=== PATIENT | male | born 1945 | race Caucasian/White ===

== ENCOUNTER 2018-04-10 09:20 | Day surgery (SDC) | payer MEDICARE ==
[2018-04-09 11:29] VITALS: BMI 23.6
[2018-04-10 10:13] LABS: #Eosinphils 0.2 thou/uL (0.0-0.7); #Lymphocytes 0.8 thou/uL (1.20-3.40); #Monocytes 0.3 thou/uL (0.11-0.59); #Neutrophils 1.7 thou/uL (1.40-6.50); %Basophils 0.9 % (0.0-1.0); %Lymphocytes 25.5 % (21.0-51.0); %Neutrophils 56.6 % (42.0-75.0); Hemoglobin 14.9 g/dL (14.0-18.0); Mean Corpuscular HGB CONC 35.2 g/dL (32.0-36.0); Mean Corpuscular Volume 93.8 fL (78.0-98.0); Platelet Count 122 thou/uL (130-400); RBC Distribution Width 11.6 % (11.5-14.5); Red Blood Cell (RBC) Count 4.52 mill/uL (4.70-6.10)
[2018-04-10 10:31] LABS: Anion Gap 11 mmol/L (10-20); BUN (Urea Nitrogen) 23 mg/dL (8.4-25.7); Calc. Creatinine Clearance 71 mL/min (70-130); Calcium 9.9 mg/dL (7.8-10.44); Carbon Dioxide 28 mmol/L (23-31); Chloride 106 mmol/L (98-107); Estimated GFR-MDRD 77; Glucose 95 mg/dL (83-110); Potassium 4.7 mmol/L (3.5-5.1); Sodium 140 mmol/L (136-145)
[2018-04-10] MEDS ORDERED: CEFAZOLIN/Water 2 GM/20 ML SYRINGE ONE (10:36)
[2018-04-10] MEDS ORDERED: Lidocaine 1% (PF) 30 ML VIAL ONE (10:40)
[2018-04-10] MEDS ORDERED: methylPREDNISolone Acetate 40 mg/ml Vial ONE (10:59)
[2018-04-10] MEDS ORDERED: Midazolam HCl 2 mg/2 ml Vial ONE (11:23)
[2018-04-10] MEDS ORDERED: Fentanyl 100 MCG/2 ML VIAL ONE (11:23)
[2018-04-10] MEDS ORDERED: Lidocaine 1% PF 5 ML VIAL ONE (13:31)
[2018-04-10] MEDS ORDERED: PROPOFOL 200 MG/20 ML VIAL ONE (13:31)
--- NOTE | 2018-04-10 13:36 | EKG ---
Test Reason : PREOP Blood Pressure : / mmHG Vent. Rate : 049 BPM Atrial Rate : 049 BPM P-R Int : 160 ms QRS Dur : 108 ms QT Int : 462 ms P-R-T Axes : -02 053 077 degrees QTc Int : 417 ms Marked sinus bradycardia Abnormal ECG No previous ECGs available Confirmed by BRIANNA POOL ([id number]) on 04/10/2018 1:36:08 PM Referred By: EDIL Confirmed By:BRIANNA POOL
--- NOTE | 2018-04-11 08:48 | OP ---
DATE OF SURGERY: 04/10/2018 PREOPERATIVE DIAGNOSIS: Bilateral middle and ring finger trigger fingers with the right side being w orse than the left. POSTOPERATIVE DIAGNOSIS: Bilateral middle and ring finger trigger fingers with the right side being worse than the left. PROCEDURES PERFORMED: 1. Right-sided open trigger finger release of the right middle and ring fingers. 2. Corticosteroid injection, tendon sheath of left ring and middle fingers. SURGEON: Marcial Hatfield M.D. GEOINT ANALYST: None. BLOOD LOSS: Minimal. COMPLICATIONS: None. ANESTHETIC: The patient did have TIVA with local. DISPOSITION: He went to a Day Stay back in stable condition. INDICATIONS: This 72-year-old male is very active and presents with bilateral hand triggering. At t his time, we decided to have the left side injected and the right side released. After all appropria te consent forms were explained and signed, he was given a TIVA anesthetic. We started off on the le ft side. We used alcohol to clean off the area just distal to the MCP crease and 20 mg of Depo-Medro l with a small amount of lidocaine were injected into the flexor tendon sheath. Band-Aid was applied . We then repeated this for the long finger. At this time, a tourniquet was placed on the right arm and the right upper extremity was prepped and draped in the standard surgical fashion. Small incisi on lines were drawn out proximal to the MCP joint, and at this time, they were infiltrated with plain lidocaine. We then exsanguinated the limb and took the tourniquet to 250 mmHg. Using lomarye magnifi cation, a 15-blade was used to incise down through skin of the ring finger only. Scissor dissection was then used longitudinally to dissect down to the underlying flexor tendon sheath and A1 santy. T his was opened with a combination of a 15-blade as well as surgical scissors. The underlying tendons were then inspected. The FDS tendon was found to be degenerative in nature. There were some longit udinal splits, but overall the tendon was intact. There were no masses noted, and the underlying FDP was in much better shape. At this time, we turned our attention to the long finger and the same pro cedure was performed. Again, as we found in the ring finger, the FDS tendon was found to be degenera tive in nature with some longitudinal splits. There was also on the ulnar border, a small amount of degenerative tissue, which was torn off and this was removed sharply with the scissors. The underlyi ng tendon was found to be in excellent condition. At this time, both small wounds were irrigated wit h saline. We then used some simple interrupted nylon sutures to close skin. Bulky sterile soft tiss ue dressing was then applied. Tourniquet was let down. His fingers pinked up nicely and while he wa s awakening, the patient was able to flex and extend the fingers without any problem. At this time, the patient was taken back to Day Stay in stable condition.
== END 2018-04-10 14:00 | disposition home or self-care (01) ==
LOC: SDC 09:20
PROVIDERS: ATTEND Orthopaedic Surgery
PROC: 0LN80ZZ Release Left Hand Tendon, Open Approach (ICD-10-PCS; principal; 2018-04-10)
PROC: 0LN80ZZ Release Left Hand Tendon, Open Approach (ICD-10-PCS; 2018-04-10)
PROC: 0LN70ZZ Release Right Hand Tendon, Open Approach (ICD-10-PCS; 2018-04-10)
PROC: 0LN70ZZ Release Right Hand Tendon, Open Approach (ICD-10-PCS; 2018-04-10)
PROC: 3E0U3BZ Introduction of Anesthetic Agent into Joints, Percutaneous Approach (ICD-10-PCS; 2018-04-10)
DX: M65.331 Trigger finger, right middle finger (principal); M65.341 Trigger finger, right ring finger; M65.332 Trigger finger, left middle finger; M65.342 Trigger finger, left ring finger; I10 Essential (primary) hypertension; K21.9 Gastro-esophageal reflux disease without esophagitis; Z79.899 Other long term (current) drug therapy
CPT/HCPCS: 36415; 80048; 85025; 93005; 93010; J1030; J2001; J2250; J2704; J3010

== ENCOUNTER 2019-02-03 06:27 | Day surgery (SDC) | payer MEDICARE ==
[2019-02-02 13:23] VITALS: BMI 23.6
[2019-02-03] MEDS ORDERED: Lidocaine 1% (PF) 30 ML VIAL ONE (06:49)
[2019-02-03] MEDS ORDERED: Midazolam HCl 2 mg/2 ml Vial ONE (09:05)
[2019-02-03] MEDS ORDERED: Fentanyl 100 MCG/2 ML VIAL ONE (09:05)
[2019-02-03] MEDS ORDERED: HYDROcodone/Acetaminophen 5/325 mg Tablet ONE (11:19)
[2019-02-03] MEDS ORDERED: Lidocaine 1% PF 5 ML VIAL ONE (16:09)
[2019-02-03] MEDS ORDERED: Dexamethasone 20 MG/5 ML VIAL ONE (16:09)
[2019-02-03] MEDS ORDERED: ePHEDrine 50 MG/ML VIAL ONE (16:09)
[2019-02-03] MEDS ORDERED: PROPOFOL 200 MG/20 ML VIAL ONE (16:09)
[2019-02-03] MEDS ORDERED: Ondansetron PF 4 MG/2 ML Vial ONE (16:09)
--- NOTE | 2019-02-03 16:48 | OP ---
DATE OF PROCEDURE: 02/03/2019 PREOPERATIVE DIAGNOSIS: Left hand ring and middle finger trigger fingers. POSTOPERATIVE DIAGNOSIS: Left hand ring and middle finger trigger fingers. PROCEDURE PERFORMED: Left open middle and ring finger trigger finger releases. MIXER OPERATOR HELPER HOT METAL: None. BLOOD LOSS: Minimal. COMPLICATIONS: None. ANESTHESIA: He had general anesthetic. IMPLANTS: No implants. DISPOSITION: He went to recovery room in stable condition. INDICATIONS FOR PROCEDURE: This is a 73-year-old male, who had ring and middle finger trigger fingers, that has been unresponsive to nonoperative treatment. At this time, he wished to have these surgically released. DESCRIPTION OF PROCEDURE: After all consent forms were explained and signed, he was taken to the operating room and at this time was given general anesthetic. Once the level of anesthesia was appropriate, a tourniquet was placed on the left arm. The arm was then prepped and draped in standard surgical fashion. We then exsanguinated the limb and took the tourniquet up to 250 mmHg. Using loupe magnification, a small horizontal incision was made centered over the middle finger A1 santy down through skin only. Bipolar cautery was used to coagulate any brisk venous bleeding. Total dissection was then done using the Ragnell retractors to get down through the fatty tissue to the underlying flexor tendon and A1 santy area. We then used a combination of 15-blade and surgical scissors to transect the A1 santy. Once this had been transected, a small piece of A1 santy was removed using the scissors, so that it could not grow together. We then pulled the FDS and FDP tendons out into the wound to examine them. They were both in good condition. We then infiltrated the incision with plain lidocaine, placed 2 simple nylon sutures in this and moved onto the ring finger. Again, a 15-blade was used to cut down through skin only. Again, bipolar was used to coagulate any brisk venous bleeding. Again, dissection was done with a Ragnell to get down to the underlying flexor tendon sheath and the A1 santy. Again, this was excised and opened up using the knife and surgical scissors, and the tendons were brought into the wound. The FDS had some significant scuffing in the tendon, it was intact. However, again, it did have some significant superficial abrasions to the tendon itself. The FDP was in good condition. At this time, again, this area was irrigated, was then infiltrated with plain lidocaine for postop pain relief and a couple of nylon sutures placed to close the skin. At this time, a bulky soft tissue sterile dressing was applied. Tourniquet was let down. He was then awakened and taken to recovery room in stable condition. All counts were correct at the end of the case, and he did receive preoperative IV antibiotics. Job ID: [id number]
== END 2019-02-03 11:48 | disposition home or self-care (01) ==
LOC: SDC 06:27
PROVIDERS: ATTEND Orthopaedic Surgery
PROC: 0LN80ZZ Release Left Hand Tendon, Open Approach (ICD-10-PCS; principal; 2019-02-03)
PROC: 0LN80ZZ Release Left Hand Tendon, Open Approach (ICD-10-PCS; 2019-02-03)
DX: M65.332 Trigger finger, left middle finger (principal); M65.342 Trigger finger, left ring finger; I10 Essential (primary) hypertension; K21.9 Gastro-esophageal reflux disease without esophagitis
CPT/HCPCS: 93005; 93010; J0690; J1100; J2001; J2250; J2405; J2704; J3010; J3490

== ENCOUNTER 2020-07-19 14:27 | Outpatient (CLI) | payer MEDICARE | END 2020-07-19 14:28 | disposition home or self-care (01) | LOC: CTENTCT 14:27 | PROVIDERS: ATTEND Specialist | DX: J32.9 Chronic sinusitis, unspecified (principal) | CPT/HCPCS: 70486 ==

== ENCOUNTER 2020-10-19 10:34 | Day surgery (SDC) | payer MEDICARE ==
[2020-10-16 11:52] VITALS: BMI 23.3
[~2020-10-19 10:34] MED LIST: Dexamethasone 20 MG/5 ML VIAL ONE; Glycopyrrolate 0.2 MG/ML 5 ML SYRINGE ONE; Lidocaine 1% PF 5 ML VIAL ONE; Ondansetron PF 4 MG/2 ML Vial ONE; PHENYLEPHRINE-NS 100 MCG/ML 10 ML SYRINGE ONE; PROPOFOL 200 MG/20 ML VIAL ONE; Rocuronium Bromide 10 MG/ML (10ML VIAL) ONE
[2020-10-19] MEDS ORDERED: AFRIN NASAL MIST 15 ML BOT ONE ×2 (11:01→12:47)
[2020-10-19 11:25] LABS: Hemoglobin 14.5 g/dL (14.0-18.0)
[2020-10-19 12:00] LABS: Anion Gap 12 mmol/L (10-20); BUN (Urea Nitrogen) 18 mg/dL (8.4-25.7); Calc. Creatinine Clearance 72 mL/min (70-130); Calcium 9.3 mg/dL (7.8-10.44); Carbon Dioxide 27 mmol/L (23-31); Chloride 106 mmol/L (98-107); Glucose 98 mg/dL (83-110); Sodium 141 mmol/L (136-145)
[2020-10-19] MEDS ORDERED: Lidocaine 1% (PF) 30 ML VIAL ONE (12:47)
[2020-10-19] MEDS ORDERED: EPINEPHrine 1 MG/10 ML Abboject SYRINGE ONE (12:47)
[2020-10-19] MEDS ORDERED: Bacitracin Zinc Ointment 30 gm TUBE ONE (12:47)
[2020-10-19] MEDS ORDERED: EPINEPHrine 1 MG/ML AMP ONE ×2 (12:48→13:51)
[2020-10-19] MEDS ORDERED: Fentanyl 100 MCG/2 ML VIAL ONE (12:54)
--- NOTE | 2020-10-20 07:07 | OP ---
DATE OF PROCEDURE: 10/19/2020 PREOPERATIVE DIAGNOSES: 1. Facial pain. 2. Nasal obstruction. 3. Right severe deviated septum. 4. Obstructive hypertrophic inferior turbinates. 5. Recurrent sinusitis. POSTOPERATIVE DIAGNOSES: 1. Facial pain. 2. Nasal obstruction. 3. Right severe deviated septum. 4. Obstructive hypertrophic inferior turbinates. 5. Recurrent sinusitis. PROCEDURES PERFORMED: 1. Septoplasty. 2. Bilateral nasal endoscopy with submucosal resection of inferior turbinates. 3. Bilateral nasal endoscopy with maxillary antrostomy. 4. Bilateral nasal endoscopy with frontal sinusotomy. 5. Bilateral nasal endoscopy with total ethmoidectomy. FINDINGS: The patient had a very narrow nasofrontal recess and also very narrow openings to the maxillary sinus with uncinates plastered against the lateral nasal wall. In addition, the patient had a septal spur that touched the lateral wall in the midportion of the septum. Turbinates were also found to be generous. DESCRIPTION OF PROCEDURE: SEPTOPLASTY: After local anesthesia was infiltrated into the submucoperichondrial plane, a standard Jesus incision was made with a #15 blade down to the level of the septal cartilage. The caudal elevator was used to elevate the mucoperichondrium from the underlying cartilage. We then proceeded beyond the bony cartilaginous junction and elevated the bony periosteum as well. Great attention was paid to the spur to prevent rent formation in the septal flap. A transcartilaginous incision was then made, while preserving an adequate dorsal and caudal cartilaginous strut for tip support. The deformed cartilage was removed and disarticulated from the bony cartilaginous junction and maxillary crest. This was placed in saline and would later be crushed and returned to the mucoperichondrial envelope. We then elevated the contralateral periosteum from the bony cartilaginous region and removed the deformed portions of the bone and bony spurs. The cartilage was then crushed and placed back into the mucoperichondrial envelope and the mucosa was re-approximated with a quilting stitch composed of rapidly absorbent gut suture. The [place] incision was also closed with interrupted gut suture. At the completion of the case, Crystal splints were placed and suture secured to the caudal septum. BILATERAL NASAL ENDOSCOPY WITH SUBMUCOSAL RESECTION OF INFERIOR TURBINATES: After consent was obtained, the patient was identified, brought to the operating room, and placed on the operating room table in the supine position. Consent was obtained, notifying the patient of the possibility of additional infections, bleeding, brain injury, and eye/orbital injury. The patient was placed on the operating room table, and general endotracheal anesthesia and intravenous access was obtained. The patient was then positioned, prepped and draped for endoscopic sinus surgery. Nasal preparation included trimming nasal vestibular hairs and spraying in topical Afrin. We then placed Afrin topical solution on nasal pledgets and strategically located them intranasally. The perinasal mucosa was injected with 1% lidocaine with 1:100,000 epinephrine in the submucoperichondrial plane of the septum, lateral nasal wall, and anterior to the uncinate. The patient was then prepped and draped in a sterile fashion and positioned for endoscopic sinus surgery. With the 0-degree endoscope, the patient underwent systematic nasal endoscopy. There were no suspicious internasal masses or lesions identified. We then focused our attention to the osteomeatal complex region under the middle turbinate. The inferior turbinates were visualized with a 0 degree endoscope and outfractured with a [place] elevator. The inferior medial aspect was cauterized with the electrocautery. Hemostasis was obtained . After adequate airway was established, we turned our attention to the contralateral side and used a similar procedure. Again, a [place] elevator was used to outfracture inferior turbinates under endoscopic visualization. With a suction cautery, the free inferior medial aspect was cauterized under direct visualization along the length of the inferior turbinate. At this point, we then turned our attention to the contralateral side and proceeded with endoscopic sinus surgery. At the completion of the case, Rice keel splints were placed in the ethmoid cavities after the ethmoidectomy. There were no complications. The patient tolerated the procedure well and was discharged to the recovery room in stable condition prior to return to the preoperative day stay with ultimate discharge home. Prescriptions for pain medication and antibiotics were provided. The patient received intramuscular Depo-Medrol during the case. BILATERAL NASAL ENDOSCOPY WITH MAXILLARY ANTROSTOMY: The uncinate was then identified and the extent of the uncinate was appreciated by out-fracturing the uncinate with the ball-tip probe. We then used the sickle blade to disarticulate the uncinate from the lateral nasal wall. This was then removed with straight biting and upbiting punches with the remaining shrouds of mucosa and bony septum removed with the micro-debrider. The natural os of the maxillary sinus was then identified and enlarged with the maxillary punches and back biting forceps. BILATERAL NASAL ENDOSCOPY WITH FRONTAL SINUSOTOMY: Following the ethmoidectomy, we then turned our attention to the frontal nasal recess. The agger nasi cells were addressed and the frontal recess was exposed. The natural opening to the frontal sinus was identified. At this point, any obstructing shrouds of mucosa and bony fragments were removed with a curved microdebrider. The wound was then examined and found to be free of any obstructing debris. We then turned our attention to the contralateral side and performed a similar procedure again under endoscopic visualization using a 45-degree scope. We were able to visualize the frontal recess. Obstructing shrouds of mucosa and bone were removed with a microdebrider. The natural os of frontal sinus was identified and enlarged and irrigated. At this point, the frontal sinusotomy was completed and we turned to the next area of concern. BILATERAL NASAL ENDOSCOPY WITH TOTAL ETHMOIDECTOMY: The anterior face of the ethmoid bulla was entered and with the micro-debrider, dissection continued posteriorly to the ground lamella. The limits of dissection included the insertion of the middle turbinate, medial orbital wall, and base of skull. We similarly identified the frontal recess and removed shrouds of bone and debris in that region to obtain patency into the agger nasi region and frontal recess. We then entered the ground lamella and its anteroinferior aspect and proceeded posteriorly, opening the posterior ethmoid air-cell system. Again, the limits of dissection included the base of skull and medial orbital wall. Job ID: [id number]
--- NOTE | 2020-10-20 12:34 | EKG ---
Test Reason : PREOP Blood Pressure : / mmHG Vent. Rate : 055 BPM Atrial Rate : 055 BPM P-R Int : 180 ms QRS Dur : 108 ms QT Int : 436 ms P-R-T Axes : 029 024 053 degrees QTc Int : 417 ms Sinus bradycardia Otherwise normal ECG No previous ECGs available Confirmed by BRIANNA POOL ([id number]) on 10/20/2020 12:34:19 PM Referred By: ADELA Confirmed By:BRIANNA POOL
== END 2020-10-19 15:54 | disposition home or self-care (01) ==
LOC: SDC 10:34
PROVIDERS: ATTEND Specialist
PROC: 09BM0ZZ Excision of Nasal Septum, Open Approach (ICD-10-PCS; principal; 2020-10-19)
PROC: 09TL0ZZ Resection of Nasal Turbinate, Open Approach (ICD-10-PCS; 2020-10-19)
PROC: 09TV8ZZ Resection of Left Ethmoid Sinus, Via Natural or Artificial Opening Endoscopic (ICD-10-PCS; 2020-10-19)
PROC: 09TU8ZZ Resection of Right Ethmoid Sinus, Via Natural or Artificial Opening Endoscopic (ICD-10-PCS; 2020-10-19)
PROC: 099T8ZZ Drainage of Left Frontal Sinus, Via Natural or Artificial Opening Endoscopic (ICD-10-PCS; 2020-10-19)
PROC: 099Q8ZZ Drainage of Right Maxillary Sinus, Via Natural or Artificial Opening Endoscopic (ICD-10-PCS; 2020-10-19)
PROC: 099R8ZZ Drainage of Left Maxillary Sinus, Via Natural or Artificial Opening Endoscopic (ICD-10-PCS; 2020-10-19)
PROC: 099S8ZZ Drainage of Right Frontal Sinus, Via Natural or Artificial Opening Endoscopic (ICD-10-PCS; 2020-10-19)
DX: J32.9 Chronic sinusitis, unspecified (principal); J34.89 Other specified disorders of nose and nasal sinuses; J34.2 Deviated nasal septum; J34.3 Hypertrophy of nasal turbinates; I10 Essential (primary) hypertension; K21.9 Gastro-esophageal reflux disease without esophagitis; Z79.82 Long term (current) use of aspirin; Z79.899 Other long term (current) drug therapy
CPT/HCPCS: 36415; 80048; 85014; 85018; 93005; 93010; J0171; J0690; J1100; J2001; J2405; J2704; J3010